=== PATIENT | female | born 1995 | race Caucasian/White ===

== ENCOUNTER 2017-02-02 11:04 | Emergency (ER) | payer BC ==
[~2017-02-02] VITALS: Ht 165.1 cm; Wt 55.0 kg
[~2017-02-02 11:04] MED LIST: BUPR100T8 PO; LORA-741 PO; SERT-234 PO; TRAZ50TA35 PO
[2017-02-02 11:10] VITALS: Ht 165.1 cm; Wt 55.0 kg
[2017-02-02] MEDS ORDERED: CLON1TAB3 PO ×2 (11:20→13:30)
[2017-02-02] MEDS ORDERED: LAMO100T16 PO (11:20)
[2017-02-02] MEDS ORDERED: CLON0.5T3 PO (11:20)
[2017-02-02] MEDS ORDERED: ONDANSETRON 4MG OD TAB PO STA (11:32)
[2017-02-02] MEDS ORDERED: CLONAZEPAM 1 MG TAB PO STA (11:32)
[2017-02-02] MEDS ORDERED: CLONAZEPAM 0.5 MG TAB PO ONE (11:45)
[2017-02-02 13:38] VITALS: BP 106/54; PULSE 61; TEMP 36.8; O2SAT 100
--- NOTE | 2017-02-02 15:50 | EMERGENCY ROOM VISIT NOTE ---
History Report prepared by Sona: Josiah Pandya Under the Supervision of: Dr. Jose Carlos Clifton M.D. First contact with patient: 11:26 Chief Complaint: MEDICATION REFILL REQUEST Stated Complaint: WITHDRAWL History of Present Illness The patient is a 21 year old female who presents to the Emergency Room with complaints of worsening withdrawal starting a couple of days ago. The patient was brought into the ED via EMS. The patient states she has had anxiety starting a year ago, she usually takes 0.5 mg of Klonopin in the morning and 1 mg at night. She reports that her last dose of Klonopin was last week, but she has not taken any since because it was stolen. The patient states that she has been experiencing nausea, headaches, and dehydration the last couple of days. She reports that she was not able to sleep last night and woke up with symptoms of intermittent vomiting, shaking, tingling in her hands, diaphoresis, chills, and was experiencing a panic attack. The patient reports that she is feeling better in the ED. She admits that she is currently on her period and denies any possibility of a . The patient denies hurting herself, suicidal thoughts, a urinary tract infection, abdominal pain, any other infections, a fever, or going through withdrawal with this medication before. Source of History: patient Onset: a couple of days ago Position: other (global) Timing: worsening Modifying Factors (Worsening): other (Missing Klonopin dose) Associated Symptoms: + chills, + headache, + diaphoresis, + nausea, + vomiting, No fevers, No abdominal pain, No urinary symptoms Review of Systems See HPI for pertinent positives & negatives. A total of 10 systems reviewed and were otherwise negative. Past Medical & Surgical Medical Problems: (1) Hx of concussion (2) Pneumonia Surgical Problems: (1) History of hernia repair (2) History of oral surgery Family History Diabetes mellitus FHx: schizophrenia Heart disease Hypertension Kidney disease Kidney stones Social History Smoking Status: Never Smoker Alcohol Use: occasionally Drug Use: marijuana, other Marital Status: single Housing Status: lives with significant other Occupation Status: employed, [employer] student Current/Historical Medications Scheduled Bupropion (Wellbutrin Sr), 100 MG PO QAM Clonazepam (Klonopin), 0.5 MG PO QAM Clonazepam (Klonopin), 1 MG PO HS Clonazepam (Klonopin), 1 MG PO BID Lamotrigine (Lamictal), 100 MG PO BID Allergies Coded Allergies: No Known Allergies (Unverified , 02/02/17) Physical Exam Vital Signs Date Time Temp Pulse Resp B/P (MAP) Pulse Ox O2 Delivery O2 Flow Rate FiO2 02/02/17 13:38 36.8 61 16 106/54 100 02/02/17 11:10 36.8 61 16 106/54 100 Room Air Physical Exam GENERAL: Patient is in no acute distress. HEENT: No acute trauma, normocephalic atraumatic, mucous membranes moist, no nasal congestion, no scleral icterus. NECK: No stridor, no adenopathy, no meningismus, trachea is midline. LUNGS: Clear to auscultation bilaterally, no wheeze, no rhonchi, breath sounds equal. HEART: Without murmurs gallops or rubs, regular rate and rhythm. ABDOMEN: Soft, nontender, bowel sounds positive, no hernias, no peritonitis. EXTREMITIES: No cyanosis or edema, full range of motion of all the joints without pain or difficulty, no signs for acute trauma. NEUROLOGIC: Oriented x 3, no acute motor or sensory deficits, no focal weakness. SKIN: No rash, no jaundice, no diaphoresis. PSYCH: Cooperative, slightly anxious, No suicidal ideation. Medical Decision & Procedures Medications Administered Medications (Trade) Dose Ordered Sig/Charli Route Start Time Stop Time Status Last Admin Dose Admin Ondansetron HCl (Zofran Odt) 4 mg NOW STAT PO 02/02/17 11:32 02/02/17 11:33 DC 02/02/17 12:15 4 MG Clonazepam (Klonopin Tab) 1 mg 1145 ONCE PO 02/02/17 11:45 02/02/17 11:46 DC 02/02/17 12:15 1 MG ED Course 1126: The patient was evaluated in room C02. A complete history and physical exam was performed. 1132: Zofran Odt 4 mg PO. 1145: Klonopin Tab 1 mcg PO. 1325:Medication Reconciliation: I attest that I have personally reviewed the patient's current medication list. Blood Pressure Screening: Patient was found to have normal blood pressure on screening and does not require follow-up. 1330: I reevaluated the patient and she is doing well. I discussed results and discharge instructions: She verbalized understanding and agreement. The patient is ready for discharge. Medical Decision Differential diagnoses considered include but are not limited to: anxiety, medication withdrawal, infection, dehydration, , suicidal ideation. The patient presents with what sounds like benzodiazepine withdrawal. She also feels very anxious. She has been on Klonopin daily for about a year and has now been without the medication for several days. The patient is not homicidal or suicidal. She has no fever. She is not tachycardic. She is awake and oriented 3. The patient was given 1 mg of oral Klonopin, she was given oral Zofran, the patient has done well, she is hungry. Her symptoms have resolved. She does have a Klonopin prescription scheduled to take effect in 2 days, I will give her 4 Klonopin tablets to keep her from having withdrawal until then. Patient was felt stable for discharge, she can return if worsening. [place] Drug Monitoring Program Search Results: patient reviewed within database, no issues identified Impression Primary Impression: Benzodiazepine withdrawal Additional Impression: Vomiting Scribe Attestation The scribe's documentation has been prepared under my direction and personally reviewed by me in its entirety. I confirm that the note above accurately reflects all work, treatment, procedures, and medical decision making performed by me. Departure Information Dispostion Home / Self-Care Prescriptions Clonazepam (Klonopin) 1 Mg Tab 1 MG PO BID for 2 Days, #4 TAB Prov: Jose Carlos Clifton M.D. 02/02/17 Referrals [facility] (PCP) Forms HOME CARE DOCUMENTATION FORM, IMPORTANT VISIT INFORMATION, WORK / SCHOOL INSTRUCTIONS Patient Instructions My [facility] Additional Instructions Klonopin as before zofran 1 tab every 6 hours for nausea return if worsening or if feeling suicidal Problem Qualifiers
== END 2017-02-02 13:30 | disposition home or self-care (01) ==
LOC: EDBD 11:04 → C.EDC 11:06
DX: F15.23 Other stimulant dependence with withdrawal (principal); R11.10 Vomiting, unspecified; Z83.3 Family history of diabetes mellitus; Z82.49 Family history of ischemic heart disease and other diseases of the circulatory system; F12.90 Cannabis use, unspecified, uncomplicated

== ENCOUNTER → 2017-09-09 | Outpatient (CLI) | payer BC ==
[~2017-09-09] MED LIST changes: +CLON0.5T3 PO; +CLON1TAB3 PO; +LAMO100T16 PO; -LORA-741 PO; -SERT-234 PO; -TRAZ50TA35 PO
== END | disposition home or self-care (01) ==
LOC: C.PAPS 09:09
PROVIDERS: ATTEND Physician Assistant
DX: Z01.419 Encounter for gynecological examination (general) (routine) without abnormal findings (principal)